=== PATIENT | female | born 2000 | race Caucasian/White ===

== ENCOUNTER 2023-02-05 13:00 | Outpatient (CLI) | payer OTHER ==
[2023-02-05 18:12] LABS: HCG,QUALITATIVE BLOOD POSITIVE
== END 2023-02-05 13:15 | disposition home or self-care (01) ==
LOC: LAB.N 13:00
PROVIDERS: ATTEND Family Medicine
DX: N91.2 Amenorrhea, unspecified (principal)
CPT/HCPCS: 36415; 84703

== ENCOUNTER 2023-03-26 08:00 | Outpatient (CLI) | payer OTHER ==
[2023-03-26 15:51] LABS: BILIRUBIN,URINE NEGATIVE (NEGATIVE); GLUCOSE, URINE (UA) NEGATIVE (NEGATIVE); KETONES,URINE (UA) 40 mg/dL (NEGATIVE); LEUKOCYTE ESTERASE, URINE NEGATIVE (NEGATIVE); NITRITE,URINE NEGATIVE (NEGATIVE); OCCULT BLOOD,URINE NEGATIVE (NEGATIVE); PH,URINE 5.5 PH (5.0-7.5); PROTEIN,URINE NEGATIVE (NEGATIVE); UROBILINOGEN,URINE 0.2 (NORMAL) E.U./dL (NORMAL)
[2023-03-26 16:11] LABS: BACTERIA,URINE None Seen /HPF (None Seen); CLARITY,URINE CLEAR (CLEAR); RBC,URINE None Seen /HPF (0-5); SQUAMOUS EPITHELIAL CELL,UR NONE SEEN (<= Few); WBC,URINE 0-3 /HPF (0-5)
== END 2023-03-26 23:59 | disposition home or self-care (01) ==
LOC: LAB.WC 08:00
PROVIDERS: ATTEND Obstetrics & Gynecology
DX: Z34.90 Encounter for supervision of normal pregnancy, unspecified, unspecified trimester (principal)
CPT/HCPCS: 81001; 87086

== ENCOUNTER 2023-04-13 17:12 | Outpatient (CLI) | payer OTHER ==
--- NOTE | 2023-04-14 23:01 | Ultrasound Report ---
PROCEDURE: OB First Trimester w/TV INDICATIONS: POSITIVE TEST OUTSIDE/PRIOR DATING DATA: Last menstrual period (LMP): 01/08/2023. LMP-based estimated date of delivery (ZANA): 10/15/2023. First dating scan (date and location): 04/13/2023. Estimated date of delivery (ZANA) from first dating scan: 10/08/2023. TECHNIQUE: Real-time scanning was performed of the fetus and maternal pelvic organs, with image documentation. Endovaginal scanning was also performed to better visualize the fetus and maternal ovaries. COMPARISON: None. FINDINGS: Embryo: There is an intrauterine gestational sac seen cardiac activity is seen, with a measure d heart rate of 145 bpm. No significant perigestational/subchorionic hemorrhage can be seen. Biometric measurements are as follows: Biparietal diameter: 2.6 cm equals 14 weeks 3 days Head circumference: 10.3 cm equals 14 weeks 6 days Abdominal circumference: 8.1 cm equals 14 weeks 4 days Femur length: 1.5 cm equals 14 weeks 3 days Other: No perigestational fluid collection. Measurement variability in dating: +/- 4 weeks by LMP, +/- 7 days by mean sac diameter (use before 6 weeks gestation if crown-rump length not able to be measured), +/- 5 days by crown-rump length (6-12 weeks gestation). Maternal organs: Ovaries appear within normal limits, with an apparent corpus luteum seen on the rig ht, 1.8 cm. IMPRESSION: Single live intrauterine . There is a 1 week discrepancy between the estimated gestational age based upon these images and the e stimated gestational age based upon the given date of the last menstrual period. This degree of diffe rence is considered to be within normal limits for a fetus of this age. Please consider a follow-up anatomy scan at approximately 22 weeks gestation. Reviewed by: Taz Albarran MD on 04/14/2023 10:00 PM SERGIO Approved by: Taz Albarran MD on 04/14/2023 10:00 PM SERGIO Station ID: [id number]
== END 2023-04-13 17:13 | disposition home or self-care (01) ==
LOC: DI 17:12
PROVIDERS: ATTEND Obstetrics & Gynecology
DX: Z34.90 Encounter for supervision of normal pregnancy, unspecified, unspecified trimester (principal)

== ENCOUNTER 2023-04-25 15:12 | Outpatient (CLI) | payer OTHER ==
[2023-04-25 17:55] LABS: BASOPHILS % (AUTO) 0.3 %; EOSINOPHILS # (AUTO) 0.1 10^3/uL (0.0-0.7); EOSINOPHILS % (AUTO) 0.8 %; HCT - HEMATOCRIT 31.6 % (37.0-47.0); HGB - HEMOGLOBIN 10.8 g/dL (12.0-16.0); LYMPHOCYTES # (AUTO) 2.3 10^3/uL (1.5-3.5); LYMPHOCYTES % (AUTO) 15.6 %; MEAN CORPUSCULAR HEMOGLOBIN 31.2 pg (27.0-31.0); MEAN CORPUSCULAR HGB CONC 34.2 g/dL (32.0-36.0); MEAN CORPUSCULAR VOLUME 91.3 fL (81.0-99.0); MEAN PLATELET VOLUME 10.6 fL (7.9-10.8); MONOCYTES # (AUTO) 0.6 10^3/uL (0.0-1.0); MONOCYTES % (AUTO) 4.3 %; NEUTROPHILS # (AUTO) 11.5 10^3/uL (1.5-6.6); NEUTROPHILS % (AUTO) 78.6 %; PLT - PLATELET COUNT 256 10^3/uL (130-450); RED BLOOD COUNT 3.46 10^6/uL (4.20-5.40); RED CELL DISTRIBUTION WIDTH 12.5 % (12.0-15.0); WHITE BLOOD COUNT 14.7 x10^3/uL (4.8-10.8)
[2023-04-26 05:13] LABS: RPR Non Reactive (Non Reactive)
[2023-04-26 07:10] LABS: HBsAG SCREEN Negative (Negative)
[2023-04-26 09:09] LABS: VARICELLA-ZOSTER AB IGG 188 index (Immune >165)
[2023-04-26 21:07] LABS: HCV AB Non Reactive (Non Reactive); HIV SCREEN 4TH GENERATION Non Reactive (Non Reactive)
== END 2023-04-25 15:13 | disposition home or self-care (01) ==
LOC: LAB.N 15:12
PROVIDERS: ATTEND Obstetrics & Gynecology
DX: Z34.90 Encounter for supervision of normal pregnancy, unspecified, unspecified trimester (principal)
CPT/HCPCS: 36415; 85025; 86592; 86762; 86787; 86803; 86850; 86900; 86901; 87340; 87389

== ENCOUNTER 2023-05-24 15:58 | Outpatient (CLI) | payer OTHER ==
--- NOTE | 2023-05-25 10:50 | Ultrasound Report ---
PROCEDURE: OB Detailed Eval INDICATIONS: SUPERVISION OF OUTSIDE/PRIOR DATING DATA: Last menstrual period (LMP): 01/08/2023. LMP-based estimated date of delivery (ZANA): 10/15/2023. First dating scan (date and location): 04/13/2023. Estimated date of delivery (ZANA) from first dating scan: 10/08/2023. The below data below was generated using the clinical ZANA of 10/15/2023 TECHNIQUE: Real-time scanning was performed of the fetus, with image documentation and biometric measurements. Endovaginal scanning: Not performed COMPARISON: 05/11/2023 FINDINGS: General: A single living intrauterine gestation is present. Presentation: Vertex Placenta: Placental position is anterior, without previa. Amniotic fluid index: 12.1 cm, within normal limits for gestational age. heart rate: 148 beats per minute. Maternal cervical canal: 4.5 cm long; normal length is 2.5 cm or more. biometrics: Biparietal diameter: 4.8 cm 20 weeks 4 days Head circumference: 18.6 cm 20 weeks 6 days Abdominal circumference: 16.3 cm 21 weeks 3 days Femur length: 3.6 cm 21 weeks 4 days Estimated gestational age from initial scan: 19 weeks 3 days Composite gestational age from present scan: 20 weeks 4 days Estimated weight and percentile: 418 g, greater than 99th percentile Measurement variability in biometric dating: +/- 10 days from 12-20 weeks gestation, +/- 2 weeks from 20-30 weeks gestation, +/- 3 weeks at 30 weeks gestation or later. Anatomic survey: Neuro: Ventricles are normal at less than 10 mm. Cisterna magna is normal at 3-11 mm. Cerebellum i s normal in size and morphology. Nuchal skin fold: Normal at less than 6 mm between 14 and 20 weeks gestational age. Face: Nose and lips, facial profile are normal. Spine: No evidence for spina bifida. Heart: 4-chambered heart is present, with normal ventricular outflow tracts. Diaphragm: Diaphragm is intact. Stomach: Left-sided stomach is present. Kidneys: No hydronephrosis. Normal is less than 5 mm in 2nd trimester, less than 7 mm in 3rd trimester. Cord: 3 vessel cord has orthotopic insertion. Bladder: Normal in size. Extremities: All 4 extremities are visualized. IMPRESSION: 1. Single living intrauterine . 2. Normal second trimester anatomy survey. No anatomic anomalies detected at this time. 3. Estimated weight greater than the 99th percentile. Reviewed by: Jacinto Aleman MD on 05/25/2023 10:49 AM PDT Approved by: Jacinto Aleman MD on 05/25/2023 10:49 AM PDT Station ID: [id number]
== END 2023-05-24 15:59 | disposition home or self-care (01) ==
LOC: DI 15:58
PROVIDERS: ATTEND Obstetrics & Gynecology
DX: Z34.92 Encounter for supervision of normal pregnancy, unspecified, second trimester (principal)

== ENCOUNTER 2023-09-04 09:07 | Outpatient (CLI) | payer OTHER ==
--- NOTE | 2023-09-04 13:36 | Ultrasound Report ---
PROCEDURE: OB Follow up INDICATIONS: UTERINE SIZE DATE DISCREPENCY OUTSIDE/PRIOR DATING DATA: Last menstrual period (LMP): 01/08/2023. LMP-based estimated date of delivery (ZANA): 10/15/2023. First dating scan (date and location): 04/13/2023. Estimated date of delivery (ZANA) from first dating scan: 10/08/2023. The below data below was generated using the working ZANA of 10/15/2023 TECHNIQUE: Real-time scanning was performed of the fetus, with image documentation and biometric measurements. Endovaginal scanning: Not performed. COMPARISON: 05/11/2023 and 05/24/2023 FINDINGS: General: A single living intrauterine gestation is present. Presentation: Vertex Placenta: Placental position is anterior, without previa. Amniotic fluid index: 12.2 cm, within normal limits for gestational age. heart rate: 132 beats per minute. Maternal cervical canal: 4.0 cm long; normal length is 2.5 cm or more. biometrics: Biparietal diameter: 8.5 cm, 34 weeks, 2 days. 51%. Head circumference: 31.6 cm, 35 weeks, 3 days, 46%. Abdominal circumference: 31.4 cm, 35 weeks, 2 days, 84%. Femur length: 7.2 cm, 36 weeks, 5 days, 94%. Estimated gestational age from initial scan: 34 weeks, 1 day Composite gestational age from present scan: 35 weeks, 3 days. Estimated weight and percentile: 2711 g, 84% Measurement variability in biometric dating: +/- 10 days from 12-20 weeks gestation, +/- 2 weeks from 20-30 weeks gestation, +/- 3 weeks at 30 weeks gestation or more. Other: Nuchal cord is seen circling the neck once. IMPRESSION: 1. Single live injury gestation with fetus in vertex presentation. heart rate is 132 bpm. Teresa l amount of amniotic fluid. MITCHELL gross 12.2 cm. Estimated weight is at 84%. 2. Nuchal cord is seen. Reviewed by: Chavez Wood MD on 09/04/2023 1:34 PM PST Approved by: Chavez Wood MD on 09/04/2023 1:34 PM PST Station ID: [id number]
== END 2023-09-04 09:08 | disposition home or self-care (01) ==
LOC: DI 09:07
PROVIDERS: ATTEND Obstetrics & Gynecology
DX: O26.843 Uterine size-date discrepancy, third trimester (principal); Z3A.35 35 weeks gestation of pregnancy

== ENCOUNTER 2023-09-14 13:27 | Outpatient (CLI) | payer OTHER ==
[2023-09-14 18:18] LABS: CREATININE,URINE 23.4 mg/dL; TOTAL PROTEIN,URINE TIMED < 4 mg/dL
[2023-09-14 18:21] LABS: ALBUMIN 3.6 g/dL (3.2-5.5); ALBUMIN/GLOBULIN RATIO 1.2 (1.0-2.2); BILIRUBIN,TOTAL 0.6 mg/dL (0.2-1.0); CALCIUM 9.4 mg/dL (8.5-10.3); CREATININE 0.6 mg/dL (0.6-1.3); POTASSIUM 3.7 mmol/L (3.5-4.5); TOTAL PROTEIN 6.7 g/dL (6.4-8.9)
[2023-09-14 18:23] LABS: HGB - HEMOGLOBIN 12.6 g/dL (12.0-16.0); MEAN CORPUSCULAR HEMOGLOBIN 31.5 pg (27.0-31.0); MEAN CORPUSCULAR HGB CONC 33.2 g/dL (32.0-36.0); MEAN PLATELET VOLUME 11.2 fL (7.9-10.8); RED CELL DISTRIBUTION WIDTH 13.1 % (12.0-15.0); WHITE BLOOD COUNT 18.6 x10^3/uL (4.8-10.8)
[2023-09-14 21:08] LABS: ESTIMATED AVERAGE GLUCOSE 85 mg/dL (70-100); HEMOGLOBIN A1c% 4.6 % (4.27-6.07)
== END 2023-09-14 13:28 | disposition home or self-care (01) ==
LOC: LAB.N 13:27
PROVIDERS: ATTEND Obstetrics & Gynecology
DX: O99.891 Other specified diseases and conditions complicating pregnancy (principal); R03.0 Elevated blood-pressure reading, without diagnosis of hypertension
CPT/HCPCS: 36415; 80053; 82570; 83036; 84156; 85027

== ENCOUNTER 2023-09-20 08:00 | Outpatient (CLI) | payer OTHER | END 2023-09-20 23:59 | disposition home or self-care (01) | LOC: LAB.WC 08:00 | PROVIDERS: ATTEND Obstetrics & Gynecology | DX: Z36.85 Encounter for antenatal screening for Streptococcus B (principal) | CPT/HCPCS: 87797 ==

== ENCOUNTER 2023-10-04 08:00 | Outpatient (CLI) | payer OTHER ==
[2023-10-04 23:30] LABS: BACTERIAL VAGINOSIS DNA POSITIVE (NEGATIVE); CANDIDA GLABRATA DNA NEGATIVE (NEGATIVE); CANDIDA GROUP DNA POSITIVE (NEGATIVE); CANDIDA KRUSEI DNA NEGATIVE (NEGATIVE); TRICHOMONAS VAGINALIS DNA NEGATIVE (NEGATIVE)
== END 2023-10-04 23:59 | disposition home or self-care (01) ==
LOC: LAB.WC 08:00
PROVIDERS: ATTEND Nurse Practitioner
DX: L29.8 Other pruritus (principal)
CPT/HCPCS: 81514

== ENCOUNTER 2023-10-09 13:58 | Outpatient (CLI) | payer OTHER ==
--- NOTE | 2023-10-09 22:56 | Ultrasound Report ---
PROCEDURE: OB Follow up INDICATIONS: SUPERVISION OF OUTSIDE/PRIOR DATING DATA: Last menstrual period (LMP): 01/11/2023. LMP-based estimated date of delivery (ZANA): 10/15/2023. First dating scan (date and location): 04/13/2023. Estimated date of delivery (ZANA) from first dating scan: 10/08/2023. The below data below was generated using the clinical ZANA of 10/15/2023 TECHNIQUE: Real-time scanning was performed of the fetus, with image documentation and biometric measurements. Endovaginal scanning: Not performed. COMPARISON: 09/04/2023. FINDINGS: General: A single living intrauterine gestation is present. Presentation: Vertex Placenta: Placental position is anterior, without previa. Amniotic fluid index: 16.7 cm, within normal limits for gestational age. Largest pocket 6.2 cm. heart rate: 137 beats per minute. Maternal cervical canal: 4.4 cm long; normal length is 2.5 cm or more. No funneling. biometrics: Biparietal diameter: 9.15 cm, 37 weeks 1 day. 30th percentile. Head circumference: 33.0 cm, 37 weeks 4 days. 9th percentile. Abdominal circumference: 34.5 cm, 38 weeks 2 days. 51st percentile. Femur length: 7.8 cm, 40 weeks 0 days. 79th percentile. Estimated gestational age from initial scan: 39 weeks 1 day Composite gestational age from present scan: 38 weeks 2 days Estimated weight and percentile: 350 6 g. 54th percentile. Measurement variability in biometric dating: +/- 10 days from 12-20 weeks gestation, +/- 2 weeks from 20-30 weeks gestation, +/- 3 weeks at 30 weeks gestation or more. Other: Right renal pelvis measures 8.7 mm. Left renal pelvis measures 7.3 mm IMPRESSION: 1. [place] living intrauterine at 39 weeks 1 day based on prior dating. Overall connie ght is in the 54th percentile. The head circumference is measured at the 9th percentile. Vertex posit ion. 2. Normal placenta and amniotic fluid. 3. Bilateral pelviectasis. Recommend renal ultrasound. Reviewed by: Parish Paul MD on 10/09/2023 10:55 PM PST Approved by: Parish Paul MD on 10/09/2023 10:55 PM PST Station ID: [id number]
== END 2023-10-09 13:59 | disposition home or self-care (01) ==
LOC: DI 13:58
PROVIDERS: ATTEND Obstetrics & Gynecology
DX: O35.EXX0 Maternal care for other (suspected) fetal abnormality and damage, fetal genitourinary anomalies, not applicable or unspecified (principal); Z3A.39 39 weeks gestation of pregnancy

== ENCOUNTER 2023-10-15 08:00 | Outpatient (CLI) | payer OTHER ==
[2023-10-15 17:42] LABS: CREATININE,URINE 13.2 mg/dL; TOTAL PROTEIN,URINE TIMED < 4 mg/dL
== END 2023-10-15 23:59 | disposition home or self-care (01) ==
LOC: LAB.WC 08:00
PROVIDERS: ATTEND Nurse Practitioner
DX: R03.0 Elevated blood-pressure reading, without diagnosis of hypertension (principal)
CPT/HCPCS: 82570; 84156

== ENCOUNTER 2023-10-18 13:06 | Outpatient (CLI) | payer OTHER ==
[2023-10-18 13:38] VITALS: BP 126/88; O2SAT 100
[2023-10-18 13:50] LABS: RUPTURE OF MEMBRANES PLUS NEGATIVE (NEGATIVE)
--- NOTE | 2023-10-19 14:30 | PROCEDURE REPORT ---
- HPI Diagnosis/Indication for NST: Other (False labor) Current EDU 10/15/23 Gestation 40 Weeks and 3 Days 1 Para 0 Vital Signs Temperature 98.1 F 10/18/23 13:29 Heart Rate 104 H 10/18/23 13:29 Respiratory Rate 16 10/18/23 13:29 Blood Pressure 126/88 H 10/18/23 13:29 O2 Saturation 100 10/18/23 13:29 Temperature 98.1 F 10/18/23 13:29 Heart Rate 104 H 10/18/23 13:29 Respiratory Rate 16 10/18/23 13:29 Blood Pressure 126/88 H 10/18/23 13:29 O2 Saturation 100 10/18/23 13:29 If not protocol: Oxygen Flow, liters/minute - NST Procedure NST Procedure Start Date 10/18/23 Start Time 13:25 Stop Time 13:45 Vibroacoustic Stimulation Used No Patient States Movement Yes - Results and Plan Plan: Patient is a 23-year-old G1, P0 at 40 weeks 3 days gestation here for NST. NST Performed 10/18/2023 NST Read 10/18/2023 FHT: 125 bpm baseline, moderate variability, accelerations present, no decelerations. Reactive NST [place]: Irritable Diagnosis 40 weeks gestation False labor Continue with scheduled OB care
== END 2023-10-18 14:10 | disposition home or self-care (01) ==
LOC: WFO 13:06 → FBP 13:08 → WFO 14:10
PROVIDERS: ATTEND Obstetrics & Gynecology
DX: O47.1 False labor at or after 37 completed weeks of gestation (principal); Z3A.40 40 weeks gestation of pregnancy
CPT/HCPCS: 59025; 84112; 99213; 99215

== ENCOUNTER 2023-10-19 15:36 | Inpatient (IN) | payer OTHER ==
[2023-10-19] MEDS ORDERED: LABETALOL 20 MG/4 ML SYRINGE IVP PRN ×3 (19:18)
[2023-10-19] MEDS ORDERED: hydrALAZINE INJ 20 MG/ML VIAL IVP PRN ×2 (19:18)
[2023-10-19] MEDS ORDERED: TERBUTALINE 1 MG/ML VIAL SUBQ PRN (19:18)
[2023-10-19] MEDS ORDERED: fentaNYL 100 MCG/2 ML VIAL IVP PRN (19:18)
[2023-10-19] MEDS ORDERED: LACTATED RINGERS 1,000 ML IV PRN (19:18)
[2023-10-19] MEDS ORDERED: OXYTOCIN/SODIUM CHLORIDE 500 ML IV PRN (19:18)
[2023-10-19] MEDS ORDERED: lidocaine 1% 20 ML MDV ID PRN (19:18)
[2023-10-19] MEDS ORDERED: TRANEXAMIC ACID IN NACL 1,000 MG/100 ML BAG IV PRN (19:18)
[2023-10-19] MEDS ORDERED: METHYLERGONOVINE 0.2 MG/ML VIAL IM PRN (19:18)
[2023-10-19] MEDS ORDERED: ACETAMINOPHEN 500 MG TABLET PO PRN (19:18)
[2023-10-19] MEDS ORDERED: CARBOPROST TROMETHAMINE 250 MCG/ML VIAL IM PRN (19:18)
[2023-10-19] MEDS ORDERED: miSOPROStoL 200 MCG TABLET BC PRN (19:18)
[2023-10-19] MEDS ORDERED: miSOPROStoL 200 MCG TABLET PR PRN (19:18)
[2023-10-19] MEDS ORDERED: OXYTOCIN 10 UNIT/ML VIAL IM PRN (19:18)
[2023-10-19] MEDS ORDERED: SODIUM CHLORIDE FLUSH 0.9% 10 ML SYRINGE IVP PRN (19:18)
[2023-10-19] MEDS ORDERED: NIFEdipine 10 MG CAPSULE PO PRN (19:18)
[2023-10-19] MEDS ORDERED: SODIUM CHLORIDE FLUSH 0.9% 10 ML SYRINGE IVP SCH (20:00)
--- NOTE | 2023-10-19 22:37 | HISTORY & PHYSICAL EXAMINATION ---
Admit History - Visit Reason Visit Reason: Contractions - : 1 Care: positive: [facility] Risk/History: positive: None, Other ( couple. first baby. family in [place]. renal pelvis with some dilation otherwise no other issues.) Complications This : positive: Other (declined to do 1 hr glucose test. no genetic screening. at one point EFW >99 %ile then normal.) Smoking Status: Former smoker - Mother's Labs Mother's Blood Type: positive: B Mother's RH: positive: Positive GBS: positive: Group B Step Negative Rubella Status: positive: Immune - Other Maternal History Other Maternal History: last uls done 10/09/23 at 39w 1d. Amniotic fluid index: 16.7 cm, within normal limits for gestational age. Largest pocket 6.2 cm. heart rate: 137 beats per minute. Maternal cervical canal: 4.4 cm long; normal length is 2.5 cm or more. No funneling. biometrics: Biparietal diameter: 9.15 cm, 37 weeks 1 day. 30th percentile. Head circumference: 33.0 cm, 37 weeks 4 days. 9th percentile. Abdominal circumference: 34.5 cm, 38 weeks 2 days. 51st percentile. Femur length: 7.8 cm, 40 weeks 0 days. 79th percentile. Estimated gestational age from initial scan: 39 weeks 1 day Composite gestational age from present scan: 38 weeks 2 days Estimated weight and percentile: 350 6 g. 54th percentile. Measurement variability in biometric dating: +/- 10 days from 12-20 weeks gestation, +/- 2 weeks from 20-30 weeks gestation, +/- 3 weeks at 30 weeks gestation or more. Other: Right renal pelvis measures 8.7 mm. Left renal pelvis measures 7.3 mm 10/09/2023 10:58PM (GMT-08:00) - HPI Diagnosis/Indication for NST: Other (40 weeks) Current EDU 10/15/23 Gestation 40 Weeks and 4 Days 1 Para 0 Vital Signs Temperature 98.2 F 10/19/23 16:05 Heart Rate 80 10/19/23 16:05 Respiratory Rate 18 10/19/23 16:05 Blood Pressure 132/84 H 10/19/23 16:05 Temperature 98.1 F 10/19/23 19:40 Heart Rate 80 10/19/23 18:50 Respiratory Rate 18 10/19/23 19:40 Blood Pressure 128/80 10/19/23 19:40 O2 Saturation 99 10/19/23 16:20 If not protocol: Oxygen Flow, liters/minute - NST Procedure NST Procedure Start Date 10/19/23 Start Time 16:00 Stop Time 16:30 Vibroacoustic Stimulation Used No Patient States Movement Yes moderate variability. Acels and no decels. normal baseline. - Results and Plan Findings/Impression: reactive nst Meds/Allgy - Home Medications Home Medications: Ambulatory Orders Medication Instructions Recorded Confirmed HYDROcod/ACETAM 5/325 [[place] 5/325] 1 tablet PO BID PRN #10 tablet 05/11/23 - Allergies Allergies/Adverse Reactions: Allergies Allergy/AdvReac Type Severity Reaction Status Date / Time No Known Drug Allergies Allergy Verified 05/11/23 14:44 Physical - Abdominal Exam Vital Signs: Temp Pulse Resp BP Pulse Ox O2 Flow Rate 98.1 F 80 18 128/80 99 10/19/23 19:40 10/19/23 18:50 10/19/23 19:40 10/19/23 19:40 10/19/23 16:20 Contraction Frequency (min/apart): irregular Contraction Intensity: positive: Mild to moderate Uterine Resting Tone: positive: Soft - Monitoring Heart Rate Baseline: 145 Strip Review: positive: Category I - Presentation Presentation: positive: Vertex - Vaginal Exam Membranes: positive: Membranes intact Dilation (in cm): 3 per RN Effacement (%): 100 Station: positive: -2 Cervical Position: positive: Midposition - Speculum Exam Speculum Exam Performed: positive: No (was) - Other Notes Labor Progress Note/Additional Text: cervix was finger tip a few days ago. so has made considerable progress. Plan for Labor - Plan For Labor I expect patient to be DC'd or transferred within 96 hours.: Yes Plan for Labor: options given to patient when she was in triage earlier of staying or going home. desired to stay. offered AROM, Pitocin to help things get moving but she declines. has a plan and desires very low intervention. hopes not to have epidural. wants intermittent monitoring. wants to wait for her IV site for now. does not want a c section unless emergency. plan: will admit and do intermittent monitoring every 1-2 hours with doppler until more painful, then every 15 to 30 min. will not intervene unless asked or something is concerning. OK to wait to put iv in for now. Just reviewed plan of care with TRUMAN Ng by phone. I met the couple earlier this evening as she was deciding on admission about 1700.
[2023-10-20 02:00] LABS: BASOPHILS % (AUTO) 0.2 %; EOSINOPHILS % (AUTO) 0.1 %; HCT - HEMATOCRIT 35.4 % (37.0-47.0); HGB - HEMOGLOBIN 12.7 g/dL (12.0-16.0); LYMPHOCYTES # (AUTO) 1.7 10^3/uL (1.5-3.5); MEAN CORPUSCULAR HEMOGLOBIN 32.2 pg (27.0-31.0); MEAN CORPUSCULAR HGB CONC 35.9 g/dL (32.0-36.0); MEAN CORPUSCULAR VOLUME 89.6 fL (81.0-99.0); MEAN PLATELET VOLUME 11.9 fL (7.9-10.8); MONOCYTES % (AUTO) 5.2 %; NEUTROPHILS % (AUTO) 84.8 %; PLT - PLATELET COUNT 178 10^3/uL (130-450); RED BLOOD COUNT 3.95 10^6/uL (4.20-5.40); RED CELL DISTRIBUTION WIDTH 13.2 % (12.0-15.0); WHITE BLOOD COUNT 18.8 x10^3/uL (4.8-10.8)
--- NOTE | 2023-10-20 06:51 | PROVIDER PROGRESS NOTE ---
Labor Progress Note - Uterine Monitoring Contraction Frequency (min/apart): q2-3 Contraction Intensity: positive: Moderate - Monitoring Heart Rate Variability: positive: Moderate (6-25 bmp) Accelerations: positive: Present, 15x15 Decelerations: positive: None Strip Review: positive: Category I - Vaginal Exam Dilation (in cm): 9 Station: 1 - Labor Progress Note Labor Progress Note/Additional Text: patient requests minimal intervention. laboring without meds. 9 cm now. anticipate soon.
[2023-10-20] MEDS ORDERED: WITCH HAZEL/GLYCERIN 1 PAD TOP PRN (07:00)
[2023-10-20] MEDS ORDERED: ONDANSETRON 4 MG/2 ML VIAL IVP PRN (07:00)
[2023-10-20] MEDS ORDERED: DOCUSATE SODIUM 100 MG CAPSULE PO PRN (07:00)
--- NOTE | 2023-10-20 07:00 | DELIVERY NOTE ---
Delivery Note - Labor Labor: positive: Spontaneous - Delivery Method Delivery Method: positive: Spontaneous vaginal delivery - Presentation Presentation: positive: Vertex - Nuchal Cord Nuchal Cord: positive: Present, Reduced - Anesthetic Anesthetic Type: - Amniotic Fluid Description Amniotic Fluid Description: positive: Clear - Episiotomy Type Episiotomy Type: positive: None - Laceration Laceration: positive: 1st degree, Labial (on right) - Suture Suture Type: positive: Vicryl Suture Size: positive: 4-0 - Delivery Outcome Delivery Outcome: positive: Livebirth - Mchenry : positive: Placed in direct skin contact with mother, Suctioned Mchenry sex: positive: Male - Cord Cord: positive: 3 vessels - Placenta Placenta: positive: Intact, Spontaneous - Estimated Blood Loss Estimated Blood Loss (in cc): 250 - Post Delivery Events Post Delivery Events: positive: No post delivery events - Delivery Comments (Free Text/Narrative) Delivery Comments (Free Text/Narrative): G1 presents in labor 3 cm. desires no intervention or medication. progressed spontaneously. SROM around 5 am clear. once complete pushed thru 2 contractions to deliver her son. At the end there was terminal bradycardia into the 50s and I encouraged her to and gave some perineal pressure. This helped her direct her 2 next pushes and deliver the baby. otherwise I was very hands off, as requested. Once baby delivered, cord was around neck and was reduced. also around body. baby placed on mom's abdomen. cord clamped and cut at about 4 minutes. placenta delivered spontaneous with gentle traction. uterus contracted well. She did not want routine oxytocin so none was given. there was a small perineal laceration repaired with 3 stitches of 4-0 Vicryl suture after injection with lidocaine. There was also a right labial laceration also injected with lidocaine and repaired with 4-0 vicryl suture in running fashion. Patient tolerated everything well. no complications. EBL 250cc. counts correct after delivery.
[2023-10-20] MEDS: IBUPROFEN 600 MG TABLET PO SCH (11:13)
--- NOTE | 2023-10-20 13:16 | PHARMACY PROGRESS NOTE ---
- Best Possible Medication History Admit Date and Time: 10/19/231917 Processed by: Pharmacy Patient Interview: Pt unable to participate As the person ultimately responsible for medication therapy, providers are able to order a medication from an existing home medication list in [facility] via the "Reconcile Routine" prior to Confirmation of that medication by passport support associate. Such practice is discouraged except when the physician, in their clinical judgment, deems that a medical need exists for a medication without regard to previous use.
[2023-10-21 00:35] VITALS: O2SAT 98
[2023-10-21 08:33] VITALS: BP 131/75
--- NOTE | 2023-10-21 09:31 | DISCHARGE SUMMARY ---
Discharge Summary Admit Date: 10/19/23 Discharge Date: 10/21/23 Discharging Provider: Papa Albright MD Code Status: Attempt Resuscitation Condition at Discharge: Good Discharge Disposition: 01 Home, Self Care - DIAGNOSES Admission Diagnoses: Term labor Discharge Diagnoses with Status of Each Condition: Delivery of live harper Status post spontaneous vaginal delivery - HPI History of Present Illness: Subjective Patient reports she is doing well. Lochia appropriate. Denies heavy bleeding. Ambulating. Pelvic and abdominal pain well-controlled.Not utilizing pain medications. Advised on pain control strategies if this does worsen. Denies need for prescriptions. Tolerating oral intake. Diet: Regular. Voiding without difficulty. Passing flatus. Denies BM. Patient is bonding with baby in room Breast feeding going well. Denies feeling lightheaded, dizzy or excessively fatigued. Discussed depression. Objective General: Alert, oriented, no apparent distress. Cardiovascular: Regular rate. Regular rhythm. Lungs: No increased work of breathing. Abdomen: Uterus firm. Below umbilicus. No guarding or rebound. Extremities: No pain on palpation. No cords palpated. Distal pulses intact. - HOSPITAL COURSE Hospital Course: Patient is a 23-year-old G1, P0 who presented in spontaneous labor. Progressed spontaneously and had spontaneous rupture of membranes. Delivery overall uncomplicated until nearing delivery where there was bradycardia and patient delivered quickly. Nuchal cord was reduced. Overall uncomplicated delivery. She had a small perineal laceration that was repaired at time of delivery. course was uneventful and is doing well and desired to be discharged with her on day 1. Counseled on an follow-up care, depression, pain control. Does have an appointment with [facility] in approximately 1 week. - ALLERGIES Allergies/Adverse Reactions: Allergies Allergy/AdvReac Type Severity Reaction Status Date / Time No Known Drug Allergies Allergy Verified 05/11/23 14:44 - LABS Result Diagrams: 10/20/23 01:30 - FOLLOW UP Follow Up: With [facility] in 1 week - TIME SPENT Time Spent in Discharge (Minutes): 20
--- NOTE | 2023-10-21 09:34 | Discharge Plan ---
Discharge Plan Problem Reviewed?: Yes Disposition: Home, Self Care Condition: Good Shower Restrictions: No Instruction Topics: Vaginal After, Depression No Smoking: If you smoke, Please STOP! Call for help. Follow-up with: Milana Montano MD [Provider Admit Priv/Credential] -
--- NOTE | 2023-10-21 17:19 | Labor Flowsheet ---
Labor Flowsheet Datetime Report Generated by CPN: 10/21/2023 17:19 Datetime: 10/21/2023 08:06 VITAL SIGNS NBP Sys/Jocelyn/Mean (mmHg): 131 : 75 : 87 Pulse: 91 LaborFlag: Labor Datetime: 10/21/2023 00:24 SpO2 (%): 98 Datetime: 10/20/2023 06:16 STAGE 2 Pushing: Urge to Push Pushing Progress: Descent with Pushing; Presenting Part Visible Datetime: 10/20/2023 06:11 VAGINAL EXAM Dilatation (cm): 10.0 Effacement (%): 100 Station: 1 Datetime: 10/20/2023 06:00 Monitor Interventions for UA: [place] Adjusted Quality: Strong ASSESSMENT A Monitor Mode: External US FHR Baseline Rate : 125 FHR Baseline Changes: No Baseline Change Variability: Moderate 6-25 bpm Accelerations: 15X15 Category: Category I Datetime: 10/20/2023 05:46 Frequency (min): 2-3 Duration (sec): 40-60 Datetime: 10/20/2023 05:41 Exam by: neff Datetime: 10/20/2023 05:33 Pain Presence: Constant Pain Location: Abdomen; Perineum Pain Relief Measures: Comfort Measures Pain Coping: Writhing MATERNAL ASSESSMENT Level of Consciousness: Alert Comfort Measures: Breathing/Relaxation Pain Management: Comfort Measures Datetime: 10/20/2023 05:29 Stage of : Labor Provider Reviewed Strip: Yes COMMUNICATION Communication: Provider at Bedside Datetime: 10/20/2023 05:21 UTERINE ACTIVITY Monitor Mode: External Pattern: Normal: <= 5 Contractions in 10 Minutes Resting Tone (Palpate): Relaxed Amniotic Fluid Amount: Small Datetime: 10/20/2023 05:19 Decelerations: None Oxygen Method: Room Air Datetime: 10/20/2023 05:07 Monitor Interventions for FHR: Ultrasound Adjusted Datetime: 10/20/2023 05:02 PAIN Pain Scale: 8 Pain Type: Cramping; Contraction; Pressure Datetime: 10/20/2023 05:00 Vaginal Bleeding: Moderate Cervix, Consistency: Soft Cervix, Position: Anterior Datetime: 10/20/2023 04:50 Membrane Status: Ruptured Membranes Rupture Method: Spontaneous Amniotic Fluid Color: Clear Amniotic Fluid Odor: Normal Datetime: 10/20/2023 04:41 Temperature (C): 36.7 Headache: Denies Nausea/Vomiting: Denies Datetime: 10/20/2023 04:21 Pitocin Checklist: Uterus Palpates Soft between Contractions Patient Position/Activity: Right Lateral Datetime: 10/20/2023 04:00 Notification Reason: Status Update; Labor Status Datetime: 10/20/2023 03:44 Lie 'A': Longitudinal Vaginal Exam Comments: Dr Montano informed Datetime: 10/20/2023 03:26 TEACHING Instructional Method: Verbal Labor/Induction: Labor Stages Related: Activity and Rest Datetime: 10/20/2023 03:24 Comments: patient sitting up to change position. Maternal heart tones tracing. Datetime: 10/20/2023 03:15 Patient Care Comments: standing on side of bed and breathing well with contractions Datetime: 10/20/2023 02:48 I/O Interventions: Up to BR Datetime: 10/20/2023 01:12 PATIENT CARE IV/Blood Work: Labs Drawn with IV Start; IV Saline Locked Datetime: 10/20/2023 01:03 Breath Sounds, Left: Clear and Equal Breath Sounds, Right: Clear and Equal RUQ Epigastric Pain: Denies Datetime: 10/19/2023 23:23 Respirations: 18 Datetime: 10/19/2023 19:58 DTR's/Clonus: DTRs 1+; No Clonus ANESTHESIA Anesthesia Plans: None Plan of Care: Plan of Care Discussed Unit Routine: Monitoring
== END 2023-10-21 11:35 | disposition home or self-care (01) | DRG 807 ==
LOC: WFO 15:36 → FBP 15:37 → WFO 19:17 → FBP 19:18
PROVIDERS: ADMIT Obstetrics & Gynecology; ATTEND Obstetrics & Gynecology
PROC: 4A1HXCZ Monitoring of Products of Conception, Cardiac Rate, External Approach (ICD-10-PCS; 2023-10-19)
PROC: 10E0XZZ Delivery of Products of Conception, External Approach (ICD-10-PCS; principal; 2023-10-20)
PROC: 0HQ9XZZ Repair Perineum Skin, External Approach (ICD-10-PCS; 2023-10-20)
DX: O70.0 First degree perineal laceration during delivery (principal); Z37.0 Single live birth; O69.81X0 Labor and delivery complicated by cord around neck, without compression, not applicable or unspecified; Z3A.40 40 weeks gestation of pregnancy; O76 Abnormality in fetal heart rate and rhythm complicating labor and delivery; O69.2XX0 Labor and delivery complicated by other cord entanglement, with compression, not applicable or unspecified; Z87.891 Personal history of nicotine dependence
CPT/HCPCS: 59409; 85025; 86850; 86900; 86901

== ENCOUNTER 2023-11-07 08:00 | Outpatient (CLI) | payer OTHER ==
[2023-11-07 20:19] LABS: BACTERIAL VAGINOSIS DNA NEGATIVE (NEGATIVE); CANDIDA GLABRATA DNA NEGATIVE (NEGATIVE); CANDIDA GROUP DNA NEGATIVE (NEGATIVE); CANDIDA KRUSEI DNA NEGATIVE (NEGATIVE); TRICHOMONAS VAGINALIS DNA NEGATIVE (NEGATIVE)
== END 2023-11-07 23:59 | disposition home or self-care (01) ==
LOC: LAB.WC 08:00
PROVIDERS: ATTEND Obstetrics & Gynecology
DX: L29.8 Other pruritus (principal)
CPT/HCPCS: 81514

== ENCOUNTER 2025-04-25 09:53 | Inpatient (IN) ==
[2025-04-25] MEDS ORDERED: CARBOPROST TROMETHAMINE 250 MCG/ML VIAL IM PRN (10:09)
[2025-04-25] MEDS ORDERED: hydrALAZINE INJ 20 MG/ML VIAL IVP PRN (10:09)
[2025-04-25] MEDS ORDERED: TRANEXAMIC ACID IN NACL 1,000 MG/100 ML BAG IV PRN (10:09)
[2025-04-25] MEDS ORDERED: SODIUM CHLORIDE FLUSH 0.9% 10 ML SYRINGE IVP PRN (10:09)
[2025-04-25] MEDS ORDERED: LACTATED RINGERS 1,000 ML IV PRN (10:09)
[2025-04-25] MEDS ORDERED: fentaNYL 100 MCG/2 ML VIAL IVP PRN (10:09)
[2025-04-25] MEDS ORDERED: METHYLERGONOVINE 0.2 MG/ML VIAL IM PRN (10:09)
[2025-04-25] MEDS ORDERED: TERBUTALINE 1 MG/ML VIAL SUBQ PRN (10:09)
[2025-04-25] MEDS ORDERED: LABETALOL 20 MG/4 ML SYRINGE IVP PRN ×3 (10:09)
[2025-04-25] MEDS ORDERED: OXYTOCIN/SODIUM CHLORIDE 500 ML IV PRN ×2 (10:09→17:28)
[2025-04-25] MEDS ORDERED: OXYTOCIN 10 UNIT/ML VIAL IM PRN (10:09)
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
[2025-04-25] MEDS ORDERED: SODIUM CHLORIDE FLUSH 0.9% 10 ML SYRINGE IVP SCH (11:00)
--- OUTSIDE RECORDS SUMMARY | 2025-04-25 11:18 | EXTERNAL MEDICAL SUMMARY RPT | Continuity of Care Document ---
Author Organization [place] Address [address] [address] Phone Problems date description facility 2025-03-13 00:05 Other specified noninflammatory disorders of vagina [facility] 2025-03-13 00:05 Other specified preg abby related conditions, third trimester [facility] 2025-03-13 00:05 Unspecified abnormal findings i n urine [facility] 2025-03-16 16:35 Other specified noninflammatory disorders of vagina [facility] 2025-03-16 16:35 Other specified preg abby related conditions, third trimester [facility] 2025-03-16 16:35 Unspecified abnormal findings i n urine [facility] 2025-03-17 09:11 Other specified preg abby related conditions, third trimester [facility] 2025-03-24 16:22 Encounter for screeni ng for Streptococcus B [facility] 2025-03-24 16:23 Encounter for screeni ng for Streptococcus B [facility] 2025-03-25 00:02 Encounter for screeni ng for Streptococcus B [facility] 2025-03-25 00:03 Encounter for screeni ng for Streptococcus B [facility] 2025-03-25 00:04 Encounter for screeni ng for Streptococcus B [facility] 2025-03-25 10:20 Other specified noninflammatory disorders of vagina [facility] 2025-03-25 10:20 Other specified preg abby related conditions, third trimester [facility] 2025-03-25 10:20 Unspecified abnormal findings i n urine [facility] 2025-03-25 10:20 Encounter for screeni ng for Streptococcus B [facility] 2025-03-25 11:19 Encounter for screeni ng for Streptococcus B [facility] 2025-03-30 11:07 Unspecified abnormal findings i n urine [facility] 2025-03-30 13:14 Unspecified abnormal findings i n urine [facility] 2025-03-31 00:03 Unspecified abnormal findings i n urine [email or web address] 2025-03-31 07:15 Encounter for superv ision of other normal , third trimester [facility] 2025-03-31 07:15 Encounter for screeni ng for Streptococcus B [facility] 2025-03-[facility] 07:15 36 weeks gestation of [email or web address] 2025-03-31 08:44 Unspecified abnormal findings i n urine [email or web address] 2025-04-03 07:43 Unspecified infectio n of urinary tract in , third trimester [email or web address] 2025-04-03 07:43 Unspecified abnormal findings i n urine [facility] 2025-04-03 07:44 Unspecified infectio n of urinary tract in , third trimester [email or web address] 2025-04-03 07:44 Streptococcus B carrier state c omplicating [email or web address] 2025-04-03 07:44 Unspecified abnormal findings i n urine [facility] 2025-04-03 07:44 37 weeks gestation of [email or web address] 2025-04-10 14:54 Encounter for superv ision of normal , unspecified, third trimester [email or web address] 2025-04-17 18:46 Encounter for other specified a ntenatal screening [email or web address] 2025-04-21 08:07 Encounter for other specified a ntenatal screening [facility] 2025-04-21 12:04 Encounter for superv ision of normal , unspecified, third trimester [email or web address] 2025-04-21 12:04 Encounter for other specified a ntenatal screening [facility] 2025-04-21 14:16 Encounter for other specified a ntenatal screening [facility] 2025-04-23 12:04 Post-term [facility] 2025-04-23 12:05 Post-term [facility] 2025-04-23 14:25 Post-term [facility] 2025-04-25 00:41 Post-term Arie [facility] 2025-04-25 00:42 Post-term [facility] 2025-04-25 00:54 Post-term [facility] 2025-04-25 03:37 Post-term Wh[facility]le [facility] 2025-04-25 10:23 Post-term Arie Rai [facility] 2025-04-25 11:05 Post-term [facility]con[facility] Results/Labs test date facility value unit notes Result panel 1 SPECIFIC GRAVITY,URINE 2025-03-12 14: [facility] <=1.005 (missing) (missing) WBC,URINE 2025-03-12 14: [facility] 0-3 /hpf (missing) UROBILINOGEN,URI NE 2025-03-12 14:29 [facility] 0.2 (NORMAL) e.u./dl (missing) CUL, URINE 2025-03-12 14:29 [facility] 1010,000-50,000 CFU/mL (missing) (missing) PH,URINE 2025-03-12 14:29 [facility] 6.0 ph (missing) CLARITY,URINE 2025-03-12 14:29 [facility] CLEAR (missing) (missing) CUL, URINE 2025-03-12 14:29 [facility] CXPCULTURE IN PROGRESS. RESULTS TO FOLLOW. (missing) (missing) CUL, URINE 2025-03-12 14:29 [facility] IDMICID/JACK COM* (missing) (missing) UR CULTURE IF IND 2025-03-12 14:29 [facility] INDICATED (missing) (missing) NITRITE,URINE 2025-03-12 14:29 [facility] NEGATIVE (missing) (missing) OCCULT BLOOD,URINE 2025-03-12 14:29 [facility] NEGATIVE (missing) (missing) BILIRUBIN,URINE 2025-03-12 14:29 [facility] NEGATIVE (missing) Bilirubin can be influenced by color interference. Please correlate positive results with clinical presentation LISY GLABRATA DNA 2025-03-12 14:29 [facility] NEGATIVE (missing) No Lisy glabrata Detected LISY KRUSEI DNA 2025-03-12 14:29 [facility] NEGATIVE (missing) No Lisy krusei Detected TRICHOMONAS VAGINALIS DNA 2025-03-12 14: [facility] NEGATIVE (missing) No Trichomonas vaginalis Detected GLUCOSE, URINE (UA) 2025-03-12 14:29 [facility] NEGATIVE mg/dl (missing) KETONES,URINE (UA) 2025-03-12 14:29 [facility] NEGATIVE mg/dl (missing) PROTEIN,URINE 2025-03-12 14:29 [facility] NEGATIVE mg/dl (missing) CUL, URINE 2025-03-12 14:29 [facility] [employer] NNO FURTHER WORKUP PERFORMED FOR THIS ORGANISM (missing) (missing) SQUAMOUS EPITHELIAL CELL,UR 2025-03-12 14:29 [facility] NONE SEEN (missing) (missing) BACTERIA,URINE 2025-03-12 14: [facility] None Seen /hpf (missing) RBC,URINE 2025-03-12 14:29 [facility] None Seen /hpf (missing) LISY GROUP DNA 2025-03-12 14:29 [facility] POSITIVE (missing) Lisy group DNA Detected (Lisy albicans and/or Lisy tropicalis and/or Lisy parapsilosis and/or Lisy dubliniensis) BACTERIAL VAGINOSIS DNA 2025-03-12 14:29 [facility] POSITIVE (missing) Vaginosis panel DNA Detected. Detection of marker combinations related to bacterial vaginosis: Gardnerella vaginalis and/or L. crispatus and/or L. jensenii and/or Atopobuim vaginae and/or BVAB-2 and/or Megasphaea-1 CUL, URINE 2025-03-12 14:29 [facility] [employer] Pending (missing) (missing) LEUKOCYTE ESTERASE, URINE 2025-03-12 14:29 [facility] SMALL (missing) (missing) O:STACSC 2025-03-12 14:29 [facility] [employer] STACSCSTAPHYLOCOCCUS CARNOSUSSTAPHYLOCOCCUS CARNOSUS (missing) (missing) CUL, URINE 2025-03-12 14:29 [facility] [employer] UCC.6COLONY COUNT (missing) (missing) COLOR,URINE 2025-03-12 14:29 [facility] YELLOW (missing) URINE RANDOM Result panel 2 CLINDAMYCIN 2025-03-24 16:30 [facility] >=1 (missing) (missing) BENZYLPENICILLIN 2025-03-24 16:30 [facility] <=0.06 (missing) (missing) AMPICILLIN 2025-03-24 16:30 [facility] <=0.25 (missing) (missing) VANCOMYCIN 2025-03-24 16:30 [facility] 0.5 (missing) (missing) CUL,GBS SCREEN 2025-03-24 16:30 [facility] CC.6COLONY COUNT (missing) (missing) CUL,GBS SCREEN 2025-03-24 16:30 [facility] CULTURE IN PROGRESS. RESULTS TO FOLLOW. (missing) (missing) CUL,GBS SCREEN 2025-03-24 16:30 [facility] PICPRESENT IN CULTURE (missing) (missing) GBSPCR,REFLEX IF PEN ALLERGIC 2025-03-24 16:30 [facility] POSITIVE (missing) VAGINAL/REC SHARON CUL,GBS SCREEN 2025-03-24 16:30 [facility] Pending (missing) (missing) O:STRGRB 2025-03-24 16:30 [facility] STRGRBSTREPTOCOCCUS GROUP BSTREPTOCOCCUS GROUP B (missing) (missing) Result panel 3 RBC,URINE 2025-03-30 09:50 [facility] 0-5 /hpf (missing) UROBILINOGEN,UR INE 2025-03-30 09:50 [facility] 0.2 (NORMAL) e.u./dl (missing) SPECIFIC GRAVITY,URINE 2025-03-30 09:50 [facility] 1.010 (missing ) (missing) WBC,URINE 2025-03-30 09:50 [facility] 4-5 /hpf (missing) PH,URINE 2025-03-30 09:50 [facility] 5.0 ph (missing) CLARITY,URINE 2025-03-30 09:50 [facility] CLEAR (missing ) (missing) CUL, URINE 2025-03-30 09:50 [facility] CXPCULTURE IN PROGRESS. RESULTS TO FOLLOW. (missing ) (missing) BACTERIA,URINE 2025-03-30 09:50 [facility] Few /hpf (missing) CUL, URINE 2025-03-30 09:50 [facility] LPOLYLESS THAN 10,000 COLONIES/ML polymicrobial growth including (missing ) (missing) CUL, URINE 2025-03-30 09:50 [facility] LPOLYcontamination. (missing ) (missing) CUL, URINE 2025-03-30 09:50 [facility] LPOLYpotential pathogens. This is suggestive of skin or other (missing ) (missing) COLOR,URINE 2025-03-30 09:50 [facility] LT. YELLOW (missing ) (missing) SQUAMOUS EPITHELIAL CELL,UR 2025-03-30 09:50 [facility] MOD Squamous (missing ) (missing) OCCULT BLOOD,URINE 2025-03-30 09:50 [facility] NEGATIVE (missing ) (missing) BILIRUBIN,URINE 2025-03-30 09:50 [facility] NEGATIVE (missing ) Bilirubin can be influenced by color interference. Please correlate positive results with clinical presentation GLUCOSE, URINE (UA) 2025-03-30 09:50 [facility] NEGATIVE mg/dl (missing) KETONES,URINE (UA) 2025-03-30 09:50 [facility] NEGATIVE mg/dl (missing) PROTEIN,URINE 2025-03-30 09:50 [facility] NEGATIVE mg/dl (missing) NITRITE,URINE 2025-03-30 09:50 [facility] POSITIVE (missing ) (missing) LEUKOCYTE ESTERASE, URINE 2025-03-30 09:50 [facility] SMALL (missing ) (missing) Result panel 4 CUL,GBS SCREEN 2025-04-17 18:30 [facility] (missing) (missing) (missing) CUL,GBS SCREEN 2025-04-17 18:30 [facility] 11+ GROWTH (missing) (missing) CUL,GBS SCREEN 2025-04-17 18:30 [facility] BETA STREP B: Susceptibility testing is not generally (missing) (missing) CUL,GBS SCREEN 2025-04-17 18:30 [facility] CC.6COLONY COUNT (missing) (missing) CUL,GBS SCREEN 2025-04-17 18:30 [facility] CULTURE IN PROGRESS. RESULTS TO FOLLOW. (missing) (missing) CUL,GBS SCREEN 2025-04-17 18:30 [facility] IDMICID/JACK COM* (missing) (missing) CUL,GBS SCREEN 2025-04-17 18:30 [facility] SENSNISENSITIVITIES NOT INDICATED FOR THIS ISOLATE (missing) (missing) O:STRAGA 2025-04-17 18:30 [facility] STRAGASTREP AGALACTIAE - (GROUP B)STREP AGALACTIAE - (GROUP B) (missing) (missing) CUL,GBS SCREEN 2025-04-17 18:30 [facility] indicated due to this organism's predictable susceptibility (missing) (missing) CUL,GBS SCREEN 2025-04-17 18:30 [facility] to ampicillin, penicillin, cephalosporins, levofloxacin and (missing) (missing) CUL,GBS SCREEN 2025-04-17 18:30 [facility] vancomycin. (missing) (missing) Social History date description facility
--- NOTE | 2025-04-25 13:32 | PHARMACY PROGRESS NOTE ---
Best Possible Medication History Admit Date and Time: 04/25/25 [id number] Home Medications Medication Instructions Recorded Confirmed Type multivitamin 1 tab PO QAM 09/26/24 History Processed by: Nursing Medications reviewed in ED?: No Medication History completed: Yes Patient Interview: Pt unable to participate Secondary Source(s): Insurance records [facility] Statement: As the person ultimately responsible for medication therapy, providers are able to order a medication from an existing home medication list in [facility] via the "Reconcile Routine" prior to Confirmation of that medication by desktop support specialist. Such practice is discouraged except when the physician, in their clinical judgment, deems that a medical need exists for a medication without regard to previous use.
[2025-04-25] MEDS ORDERED: AMPICILLIN 1 GM in SODIUM CHLORIDE 0.9% MINIBAG 100 ML IV SCH (15:00)
[2025-04-25] MEDS ORDERED: HYDROCORTISONE 1% CREAM 28 GM TUBE TOP PRN (17:28)
[2025-04-25] MEDS ORDERED: IBUPROFEN 800 MG TABLET PO PRN (17:28)
[2025-04-25] MEDS ORDERED: WITCH HAZEL/GLYCERIN 1 PAD TOP PRN (17:28)
[2025-04-25] MEDS ORDERED: ACETAMINOPHEN 500 MG TABLET PO PRN (17:28)
--- NOTE | 2025-04-25 17:33 | DELIVERY NOTE ---
Delivery Note Delivery Comments (Free Text/Narrative) Delivery Comments (Free Text/Narrative): Labor: This 25yo @ 41.1wks gestation by LMP presented to [facility] in active labor. Cervix was 6-7/90/-1 and vertex. FHR demonstrated Category I pattern throughout labor. She was noted to be GBS positive but declined antibiotic prophylaxis. She initially consented to IV saline lock however declined thereafter. Normal labor course. Pt progressed spontaneously with intermittent urge to push starting at 1502. She was noted to be c/c/+2 via cervical exam at 1543 with onset of active pushing. SROM occurred at 1614 and was noted to be a small amount of clear fluid. : Normal SVB of viable female infant on 04/25/2025 @ 1632. No nucal cord. The was placed on maternal abdomen, stimulated, dried, and placed skin to skin. 's were 9/9 at 1 and 5 min respectively. Pitocin administered via IV for hemostasis. The umbilical cord was allowed to stop pulsating at which time it was doubly clamped by CNM. Cord blood was obtained. 3VC. Active management of the third stage declined by the patient. Placenta delivered spontaneously and intact at 1701. EBL 300mL. Fourth stage: Uterine fundus firm and there is no excessive bleeding. The perineum, vagina, and cervix were inspected and found to be intact. initiated. Family bonding well. Both mother and baby were left in stable condition.
[2025-04-25] MEDS: DOCUSATE SODIUM 100 MG CAPSULE PO SCH (21:00)
[2025-04-26] MEDS: SIMETHICONE CHEW 80 MG TABLET PO PRN (00:25)
--- NOTE | 2025-04-26 10:14 | Discharge Summary ---
Discharge Summary Admit Date: 04/25/25 Discharge Date: 04/26/25 HPI History of Present Illness: Diagnosis on Admission: 1. 25yo @ 41.1wks gestation by LMP 2. Active labor 3. GBS POSITIVE 4. FHR Category I Diagnosis on Discharge: 1. 25yo PPD#1 s/p TSVD viable female 2. 3. Normal recovery Brief History: She is a [facility] who presented on 04/25/2025 in active labor. Cervix was 6-7/90/-1 and vertex with intact membranes. SROM occurred 1613 and was noted to be a moderate amount of clear fluid. She spontaneously progressed to deliver a viable female infant on 04/25/2025 @ 1632. Perineum was intact. Apgars were 9/9 at 1 and 5 minutes respectively. QBL 300 mL. She has been doing well in her course. She is ambulating and tolerating a regular diet. She is urinating without difficulty and her lochia is normal. Her pain is well controlled with oral medications. She will be discharged home today on day #1 with instructions to continue taking her vitamin while and to continue taking Ibuprofen and Tylenol over the counter as needed for pain management. She intends to follow up with myself at [facility] in 1 week for routine visit or sooner if needed. She has been given precautions to call if she has any worsening fevers, chills, abdominal pain, increased vaginal bleeding or foul smelling vaginal lochia. Physical Exam: Normocephalic, atraumatic. Heart RRR w/o M/G/R, lungs CTAB, abdomen soft and nontender with fundus firm at U, perineum intact, light lochia rubra, bilateral LE's no edema. Mood is good. ALLERGIES Allergies Allergy/AdvReac Type Severity Reaction Status Date / Time No Known Drug Allergies Allergy Verified 04/17/25 16:31 MEDICATIONS Ambulatory Orders Medication Instructions Recorded Confirmed multivitamin 1 tab PO QAM 09/26/24 PHYSICAL EXAM AT DISCHARGE Vital Signs: Vital Signs x48h Temp Pulse Resp BP Pulse Ox 04/26/25 08:40 98.2 F 84 16 122/68 96 09/07/25 06:00 98.2 F 85 16 122/69 Discharge Plan Discharge Patient Disposition: 01 Home, Self Care Prescriptions: Continued multivitamin Tablet 1 tab PO QAM Print Language: Malay Patient Instructions: After a Vaginal , Nutrition While , : Caring for Yourself
[2025-04-26] MEDS: AMPICILLIN 2 GM in SODIUM CHLORIDE 0.9% MINIBAG 100 ML IV ONE (11:40)
[2025-04-26 16:07] VITALS: BP 117/67; TEMP 97.9; O2SAT 99
--- NOTE | 2025-04-26 18:05 | Labor Flowsheet ---
Labor Flowsheet Datetime Report Generated by CPN: 04/26/2025 18:05 Datetime: 04/26/2025 13:35 Pulse: 81 SpO2 (%): 99 Datetime: 04/26/2025 13:34 VITAL SIGNS NBP Sys/Jocelny/Mean (mmHg): 117 : 67 : 78 Datetime: 04/25/2025 19:31 Stage of : Recovery Respirations: 16 Temperature (C): 36.4 Temperature Route: Oral Datetime: 04/25/2025 19:17 LaborFlag: Labor Datetime: 04/25/2025 16:17 PATIENT CARE Patient Position/Activity: Left Lateral Patient Care Comments: with right leg on squat bar. PZakiya, RN at bedside Datetime: 04/25/2025 16:15 ASSESSMENT A Monitor Mode: Doppler Comments: FHR 124 Datetime: 04/25/2025 16:14 Membrane Status: Ruptured Membranes Rupture Method: Spontaneous Amniotic Fluid Color: Clear Amniotic Fluid Amount: Small Datetime: 04/25/2025 15:43 Station: 0 Exam by: A.Jenny, CNM Datetime: 04/25/2025 15:02 Contraction Comments: pt bearing down with cxtn Datetime: 04/25/2025 14:48 Communication Comments: A.Jenny, cNM at bedside and updated on pt status Datetime: 04/25/2025 14:14 UTERINE ACTIVITY Monitor Mode: Palpation Frequency (min): 4-6 Quality: Strong Duration (sec): 75-90 Datetime: 04/25/2025 13:05 I/O Interventions: Clear Liquids Given Datetime: 04/25/2025 10:23 Monitor Interventions for UA: [place] Adjusted Pattern: Normal: <= 5 Contractions in 10 Minutes Resting Tone (Palpate): Relaxed FHR Baseline Rate : 120 Variability: Moderate 6-25 bpm Accelerations: 15X15 Decelerations: None Category: Category I Datetime: 04/25/2025 10:06 VAGINAL EXAM Dilatation (cm): 6.5 Effacement (%): 90 COMMUNICATION Communication: RN at Bedside; Provider at Bedside
== END 2025-04-26 17:45 | disposition home or self-care (01) | DRG 807 ==
LOC: WFO 09:53 → FBP 09:55
PROVIDERS: ADMIT Nurse Practitioner Obstetrics & Gynecology; ATTEND Nurse Practitioner Obstetrics & Gynecology